=== PATIENT | female | born 1990 | race Caucasian/White ===

== ENCOUNTER 2017-08-29 07:53 | Outpatient (CLI) | payer BC ==
--- NOTE | 2017-08-29 09:52 | ULT ---
RIGHT UPPER QUADRANT ULTRASOUND: Date: 08/29/17 HISTORY: Right upper quadrant pain. FINDINGS: The liver demonstrates increased echogenicity consistent with fatty infiltration, without focal mass or intrahepatic ductal dilatation. Multiple shadowing gallstones are seen without gallbladder wall th ickening or pericholecystic fluid. The common duct measures 4.0 mm in diameter. The right kidney and visualized portions of the pancreas are unremarkable. No free fluid is seen in Morison's pouch. IMPRESSION: 1. Fatty liver. 2. Cholelithiasis. POS: [facility]
== END 2017-08-29 07:54 | disposition home or self-care (01) ==
LOC: MADULT 07:53
PROVIDERS: ATTEND Family Medicine
DX: R10.11 Right upper quadrant pain (principal); K76.0 Fatty (change of) liver, not elsewhere classified; K80.20 Calculus of gallbladder without cholecystitis without obstruction
CPT/HCPCS: 76705

== ENCOUNTER 2018-03-14 09:43 | Outpatient (CLI) | payer BC | END 2018-03-14 09:44 | disposition home or self-care (01) | LOC: MADLAB 09:43 | PROVIDERS: ATTEND Family Medicine | DX: R00.0 Tachycardia, unspecified (principal) | CPT/HCPCS: 36415; 84443; 93005; 93010 ==

== ENCOUNTER 2018-07-21 10:16 | Emergency (ER) | payer BC ==
[2018-07-21 11:26] LABS: #Basophils 0.1 thou/uL (0.0-0.2); #Eosinphils 0.1 thou/uL (0.0-0.7); #Lymphocytes 1.4 thou/uL (1.20-3.40); #Monocytes 0.5 thou/uL (0.11-0.59); #Neutrophils 7.3 thou/uL (1.40-6.50); %Basophils 0.7 % (0.0-1.0); %Eosinophils 1.1 % (0.0-10.0); %Lymphocytes 14.5 % (21.0-51.0); %Monocytes 4.8 % (0.0-10.0); %Neutrophils 78.8 % (42.0-75.0); Hemoglobin 14.1 g/dL (12.0-16.0); Mean Corpuscular HGB CONC 32.4 g/dL (32.0-36.0); Mean Corpuscular Hemoglobin 29.3 pg (27.0-31.0); Mean Corpuscular Volume 90.3 fL (78.0-98.0); Mean Platelet Volume 8.6 fL (7.4-10.4); Platelet Count 296 thou/uL (130-400); RBC Distribution Width 12.2 % (11.5-14.5); Red Blood Cell (RBC) Count 4.81 mill/uL (4.20-5.40); White Blood Cell (WBC) Count 9.3 thou/uL (4.8-10.8)
[2018-07-21 11:36] LABS: Bilirubin Small (Negative); Blood, Urine Negative (Negative); Clarity Hazy (Clear); Glucose, Urine (Dipstick) Negative (Negative); Leukocyte Moderate (Negative); Nitrite Negative (Negative); Protein, Urine (Dipstick) 30 mg/dL (Neg-Trace); Specific Gravity, Urine 1.015 (1.005-1.030)
[2018-07-21 11:37] LABS: Pregnancy Test - Urine (BHCG) Negative (Negative); Pregu Control Background? CLEAR/WHITE (CLR/WHITE); Pregu Control Bar Appear? YES (CONTROL BAR); Specific Gravity 1.015 (1.002-1.036)
[2018-07-21 11:44] LABS: Bacteria/HPF Rare-Few HPF (None Seen); RBC/HPF None Seen HPF (0-3)
[2018-07-21 11:45] LABS: ALT (SGPT) 17 U/L (8-55); AST (SGOT) 13 U/L (5-34); Albumin 4.1 g/dL (3.5-5.0); Alkaline Phosphatase 117 U/L (40-150); Anion Gap 14 mmol/L (10-20); BUN (Urea Nitrogen) 9 mg/dL (7.0-18.7); Bilirubin, Total 1.4 mg/dL (0.2-1.2); Calc. Creatinine Clearance 0 mL/min (70-130); Calcium 9.6 mg/dL (7.8-10.44); Carbon Dioxide 22 mmol/L (22-29); Chloride 106 mmol/L (98-107); Estimated GFR-MDRD 82; Globulin 4.3 g/dL (2.4-3.5); Glucose 95 mg/dL (70-105); Potassium 4.3 mmol/L (3.5-5.1); Protein, Total 8.4 g/dL (6.0-8.3); Sodium 138 mmol/L (136-145)
[2018-07-21] MEDS ORDERED: Ketorolac Tromethamine 30 MG/ML VIAL ONE (11:53)
[2018-07-21] MEDS ORDERED: Piperacillin/Tazobactam 4.5 GM VIAL ONE (13:37)
[2018-07-21] MEDS ORDERED: Sodium Chloride 0.9% 100 ML ONE (13:37)
--- NOTE | 2018-07-21 13:37 | CT ---
CT ABDOMEN AND PELVIS WITH IV CONTRAST: HISTORY: A 28-year-old female with a history of right lower quadrant pain. Gynecological history of polycysti c ovary disease and hypertension. FINDINGS: The lung bases are clear. Status post cholecystectomy. No ductal dilatation. The pancreas, spleen, and adrenal glands are unremarkable. Possible very tiny, nonobstructing right renal calculus. No e vidence for obstruction. In the right lower quadrant, there is some fairly extensive abnormal fat stranding, in the expected region of the appendix and surrounding the appendix. Just as the appendi x leaves the cecal apex, there is a thin-walled fluid collection, which measures approximately 4.2 cm in size, with a second fluid collection that is noted much more centrally within the abdomen, which appears to be connected to this more right lower quadrant fluid collection. This second fluid collec tion measures approximately 3.4 cm in size. They appear connected, but I am not for certain that the y communicate. The terminal ileum shows abnormal wall thickening over the course of about 9 to 10 cm . There are portions of the distal appendix that are seen that appear to be normal in caliber but, g iven this fat stranding, these two adjacent fluid collections, and the poor definition of the proxima l appendix, I favor this representing appendicitis with periappendiceal abscesses. There are some ad jacent minimally enlarged lymph nodes in the right lower quadrant. There is an approximately 5 cm in diameter dermoid involving the right adnexal region. There is an a pproximately 4 cm in diameter dermoid involving the left adnexa. IMPRESSION: 1. Marked abnormal fat stranding in the right lower quadrant, somewhat surrounding, particularly the more proximal appendix, which is very poorly defined, with two adjacent fluid collections, which do not contain gas but are concerning for periappendiceal abscesses. 2. Minimal right lower quadrant abnormal lymph nodes with abnormal thickening of the terminal ileum, possibly in response to the presumed right lower quadrant infection. Findings were discussed with Denzel Kay, who is in agreement. Findings were discussed with Dr. Turner in the emergency room at [facility] at 1:20 p.m., who indicat ed he was going to send the patient to [facility] for a surgical evaluation. CODE CR POS: [facility]
== END 2018-07-21 15:16 | disposition short-term general hospital (02) ==
LOC: MADERS 10:16
DX: K35.80 Unspecified acute appendicitis (principal); F17.210 Nicotine dependence, cigarettes, uncomplicated; I10 Essential (primary) hypertension; Z79.899 Other long term (current) drug therapy
CPT/HCPCS: 36415; 74177; 80053; 81003; 81015; 81025; 85025; 87086; 96365; 96375; J1885; J2543; J7050

== ENCOUNTER 2018-08-01 23:25 | Emergency (ER) | payer BC ==
[~2018-08-01 23:25] MED LIST: Iopamidol 370 76% 100 ML VIAL ONE
[2018-08-02 00:32] LABS: #Basophils 0.1 thou/uL (0.0-0.2); #Eosinphils 0.2 thou/uL (0.0-0.7); #Lymphocytes 2.5 thou/uL (1.20-3.40); #Monocytes 0.5 thou/uL (0.11-0.59); #Neutrophils 5.5 thou/uL (1.40-6.50); %Basophils 0.8 % (0.0-1.0); %Eosinophils 2.5 % (0.0-10.0); %Lymphocytes 28.1 % (21.0-51.0); %Monocytes 5.8 % (0.0-10.0); %Neutrophils 62.8 % (42.0-75.0); Hemoglobin 12.3 g/dL (12.0-16.0); Mean Platelet Volume 7.6 fL (7.4-10.4); Platelet Count 341 thou/uL (130-400); RBC Distribution Width 12.2 % (11.5-14.5); White Blood Cell (WBC) Count 8.8 thou/uL (4.8-10.8)
[2018-08-02 00:49] LABS: ALT (SGPT) 13 U/L (8-55); AST (SGOT) 9 U/L (5-34); Albumin 3.7 g/dL (3.5-5.0); Alkaline Phosphatase 112 U/L (40-150); Anion Gap 13 mmol/L (10-20); BUN (Urea Nitrogen) 12 mg/dL (7.0-18.7); Bilirubin, Total 0.3 mg/dL (0.2-1.2); Calc. Creatinine Clearance 0 mL/min (70-130); Calcium 9.3 mg/dL (7.8-10.44); Carbon Dioxide 22 mmol/L (22-29); Chloride 110 mmol/L (98-107); Estimated GFR-MDRD Greater than 90; Globulin 4.2 g/dL (2.4-3.5); Glucose 97 mg/dL (70-105); Lipase 24 U/L (8-78); Protein, Total 7.9 g/dL (6.0-8.3); Sodium 141 mmol/L (136-145)
[2018-08-02 01:26] LABS: Bilirubin Negative (Negative); Blood, Urine Trace (Negative); Clarity Clear (Clear); Glucose, Urine (Dipstick) Negative (Negative); Leukocyte Negative (Negative); Nitrite Negative (Negative); Protein, Urine (Dipstick) Negative (Neg-Trace); Specific Gravity, Urine 1.015 (1.005-1.030); Urobilinogen 0.2 mg/dL (0.2-1.0)
[2018-08-02 01:29] LABS: Pregnancy Test - Urine (BHCG) Negative (Negative); Pregu Control Background? CLEAR/WHITE (CLR/WHITE); Pregu Control Bar Appear? YES (CONTROL BAR); Specific Gravity 1.015 (1.002-1.036)
[2018-08-02 01:31] LABS: Bacteria/HPF None Seen HPF (None Seen); Squamous Epithelial 0-3 HPF (0-3); WBC/HPF 0-3 HPF (0-3)
--- NOTE | 2018-08-02 08:45 | CT ---
PRELIMINARY REPORT/[facility]/EMERGENTY AFTER-HOURS PROCEDURE CT Abdomen and Pelvis With Contrast EXAM DATE/TIME: 08/02/2018 12:56 AM CLINICAL HISTORY: 28 years old, female; Pain; Abdominal pain; Flank; Right lower quadrant (rlq); Prior surgery; Surgery Ndate: <1 month; Surgery type: Post surg appy on 07-22-18 PT is still having rlq pain TECHNIQUE: Axial computed tomography images of the abdomen and pelvis with intravenous contrast. All CT scans at this facility use at least one of these dose optimization techniques: automated exposure control; mA and/or kV adjustment per patient size (includes targeted exams where dose is matched to clinical ind ication); or iterative reconstruction. Coronal reformatted images were created and reviewed. CONTRAST: 96 ml of ISOVUE administered intravenously. COMPARISON: No relevant prior studies available. FINDINGS: Lower thorax: No acute findings. ABDOMEN: Liver: Normal. No mass. Gallbladder and bile ducts: There are postoperative changes of cholecystectomy. Pancreas: Normal. No ductal dilation. Spleen: Normal. No splenomegaly. Adrenals: Normal. No mass. Kidneys and ureters: Normal. No hydronephrosis. Stomach and bowel: See Appendix Finding. Appendix: There are postoperative changes of appendectomy. Inferior to the right lower quadrant and n ear the right adnexa is a focus of fat stranding and possible phlegmon formation which could be relat ed to prior acute appendicitis with no visible abscess formation in this location. There is wall thic kening of the adjacent terminal ileum and therefore terminal ileitis cannot be excluded. PELVIS: Bladder: Unremarkable as visualized. Reproductive: There is a right ovarian dermoid cyst containing fat, fluid, soft tissue and calcific d ensities, measuring a maximum of 5.7 cm diameter and an additional dermoid cyst in the left ovary lianne suring a maximum of 3.2 cm. ABDOMEN and PELVIS: Intraperitoneal space: There is trace free fluid in the pelvis. Bones/joints: No acute fracture. No dislocation. Soft tissues: Unremarkable. Vasculature: Normal. No abdominal aortic aneurysm. Lymph nodes: Normal. No enlarged lymph nodes. IMPRESSION: 1. There are postoperative changes of appendectomy. Inferior to the right lower quadrant and near the right adnexa is a focus of fat stranding and possible phlegmon formation which could be related to p rior acute appendicitis with no visible abscess formation in this location. There is wall thickening of the adjacent terminal ileum and therefore terminal ileitis cannot be excluded. 2. There is a right ovarian dermoid cyst containing fat, fluid, soft tissue and calcific densities, m easuring a maximum of 5.7 cm diameter and an additional dermoid cyst in the left ovary measuring a ma ximum of 3.2 cm. Thank you for allowing us to participate in the care of your patient. Dictated and Authenticated by: Axel Kaiser MD 08/02/2018 1:56 AM Central Time ([place] & [place]) FINAL REPORT CT ABDOMEN AND PELVIS WITH IV CONTRAST: DATE: 08/02/2018. TIME: Performed on an emergency basis at 0100 hours. HISTORY: Worsening abdominal pain. COMPARISON: 07/21/2018. FINDINGS: Agree with the preliminary report by Dr. Hawley from [facility]. Postoperative changes right lower quadrant. Some circumferential wall thickening of the distal internal ileum. No well-defined abscess. Dermoid fat-containing lesions of each adnexa are also again demonstrated. POS: [facility]
== END 2018-08-02 02:25 | disposition home or self-care (01) ==
LOC: MADERS 23:25
DX: N83.201 Unspecified ovarian cyst, right side (principal); I10 Essential (primary) hypertension; F17.210 Nicotine dependence, cigarettes, uncomplicated; Z79.899 Other long term (current) drug therapy
CPT/HCPCS: 36415; 74177; 80053; 81001; 81025; 82150; 83690; 85025

== ENCOUNTER 2018-10-28 22:06 | Emergency (ER) | payer BC | END 2018-10-28 22:50 | disposition home or self-care (01) | LOC: MADERS 22:06 | DX: T82.838A Hemorrhage due to vascular prosthetic devices, implants and grafts, initial encounter (principal); I10 Essential (primary) hypertension; K50.90 Crohn's disease, unspecified, without complications; F17.210 Nicotine dependence, cigarettes, uncomplicated; Z79.899 Other long term (current) drug therapy | CPT/HCPCS: 99283 ==